=== PATIENT | male | born 1965 | race Caucasian/White ===

== ENCOUNTER 2018-06-22 06:20 | Inpatient (IN) | payer BC ==
[2018-06-22] MEDS ORDERED: GLYCOPYRROLATE 0.4 MG INJ (07:00)
[2018-06-22] MEDS ORDERED: NEOSTIGMINE 3 MG/3 ML SYRINGE (07:00)
[2018-06-22] MEDS ORDERED: SEVOFLURANE 15 MIN (07:00)
[2018-06-22] MEDS ORDERED: ONDANSETRON 4 MG INJ (07:00)
[2018-06-22] MEDS ORDERED: GELATIN SIZE 100 SPONGE (07:33)
[2018-06-22] MEDS ORDERED: THROMBIN 5000 UNIT VIAL (07:33)
[2018-06-22] MEDS: HEPARIN 1000 UNITS/ML 10 ML INJ (07:33)
[2018-06-22] MEDS ORDERED: MIDAZOLAM 1 MG/ML 2 ML INJ (08:05)
[2018-06-22] MEDS ORDERED: HEPARIN 1000 UNITS/ML 10 ML INJ (08:49)
[2018-06-22] MEDS ORDERED: PROTAMINE 250 MG INJ (09:24)
[2018-06-22] MEDS ORDERED: ROCURONIUM 50 MG INJ (09:43)
[2018-06-22] MEDS ORDERED: LIDOCAINE 2% (SDV) 5 ML INJ (09:43)
[2018-06-22] MEDS ORDERED: ETOMIDATE 20 MG INJ (09:43)
[2018-06-22] MEDS ORDERED: CEFAZOLIN 1 GM INJ (09:50)
[2018-06-22] MEDS ORDERED: METOCLOPRAMIDE 10 MG INJ IV (10:00)
[2018-06-22] MEDS ORDERED: FENTAnyl 50 MCG/ML VIAL IV (10:00)
[2018-06-22] MEDS ORDERED: DIPHENHYDRAMINE 50 MG INJ IV (10:00)
[2018-06-22] MEDS ORDERED: MEPERIDINE 25 MG INJ IV (10:00)
[2018-06-22] MEDS ORDERED: LABETALOL HCL 20MG INJ IV (10:00)
[2018-06-22] MEDS ORDERED: hydrALAzine 20 MG INJ IV (10:00)
[2018-06-22] MEDS ORDERED: HYDROmorphONE 1 MG/5 ML IV SYRINGE IV (10:00)
[2018-06-22] MEDS: ONDANSETRON 4 MG INJ IV ×2 (10:25→15:29)
[2018-06-22] MEDS ORDERED: niCARdipine 50 MG in SOD CHLORIDE 0.9% 480 ML IV (10:30)
[2018-06-22] MEDS ORDERED: ACETAMINOPHEN 325 MG TAB PO (11:30)
[2018-06-22] MEDS ORDERED: NACL 0.9% 3 ML SYG IV (11:30)
[2018-06-22 11:42] LABS: ADD MAN DIFF? NO
[2018-06-22 11:45] LABS: BASOPHILS % 0.4 % (0.0-2.0); EOSINOPHILS # 0.1 10^3/ul (0.0-0.5); EOSINOPHILS % 1.6 % (0.0-7.0); HEMATOCRIT 35.5 % (42.0-52.0); HEMOGLOBIN 11.6 g/dl (14.0-18.0); LYMPHOCYTES # 1.8 10^3/ul (0.8-2.9); LYMPHOCYTES % 24.1 % (15.0-51.0); MEAN CORPUSCULAR HEMOGLOBIN 32.5 pg (29.0-33.0); MEAN CORPUSCULAR HGB CONC 32.7 g/dl (32.0-37.0); MEAN CORPUSCULAR VOLUME 99.4 fl (82.0-101.0); MEAN PLATELET VOLUME 11.4 fl (7.4-10.4); MONOCYTE # 0.5 10^3/ul (0.3-0.9); MONOCYTES % 6.7 % (0.0-11.0); NEUTROPHILS % 66.7 % (39.0-77.0); PLATELET COUNT 173 10^3/UL (140-415); RED BLOOD COUNT 3.57 10^6/ul (4.70-6.10); RED CELL DISTRIBUTION WIDTH 13.8 % (11.5-14.5)
[2018-06-22 11:45] LABS: WHITE BLOOD COUNT 7.5 10^3/ul (4.8-10.8)
[2018-06-22] MEDS: HYDROmorphONE 1 MG/5 ML IV SYRINGE IV (11:49)
[2018-06-22 12:11] LABS: ALANINE AMINOTRANSFERASE 20 IU/L (13-69); ALBUMIN 3.7 g/dl (3.3-4.9); ALBUMIN/GLOBULIN RATIO 1.42; ALKALINE PHOSPHATASE 27 IU/L (42-121); ANION GAP 5 (5-13); ASPARTATE AMINO TRANSFERASE 22 IU/L (15-46); BILIRUBIN,INDIRECT 0.3 mg/dl (0-1.1); BILIRUBIN,TOTAL 0.3 mg/dl (0.2-1.3); BLOOD UREA NITROGEN 12 mg/dl (7-20); CALCIUM 8.7 mg/dl (8.4-10.2); CARBON DIOXIDE 28 mmol/L (21-31); CHLORIDE 107 mmol/L (97-110); CREATININE 0.77 mg/dl (0.61-1.24); Estimated GFR > 60 mL/min (>60); GLUCOSE 133 mg/dl (70-220); POTASSIUM 4.1 mmol/L (3.5-5.1); SODIUM 140 mmol/L (135-144); TOTAL PROTEIN 6.3 g/dl (6.1-8.1)
[2018-06-22] MEDS: morphine SULFATE/PF (2 MG/2 ML) SYG IV ×2 (15:30→23:57)
[2018-06-22] MEDS: ATORVASTATIN 40 MG TAB PO (21:00)
[2018-06-23 05:27] LABS: ADD MAN DIFF? NO
[2018-06-23 05:30] LABS: BASOPHILS % 0.2 % (0.0-2.0); EOSINOPHILS # 0.1 10^3/ul (0.0-0.5); EOSINOPHILS % 1.5 % (0.0-7.0); HEMATOCRIT 33.5 % (42.0-52.0); HEMOGLOBIN 11.2 g/dl (14.0-18.0); LYMPHOCYTES # 2.1 10^3/ul (0.8-2.9); LYMPHOCYTES % 24.9 % (15.0-51.0); MEAN CORPUSCULAR HEMOGLOBIN 32.5 pg (29.0-33.0); MEAN CORPUSCULAR HGB CONC 33.4 g/dl (32.0-37.0); MEAN CORPUSCULAR VOLUME 97.1 fl (82.0-101.0); MEAN PLATELET VOLUME 11.5 fl (7.4-10.4); MONOCYTE # 0.7 10^3/ul (0.3-0.9); MONOCYTES % 8.1 % (0.0-11.0); NEUTROPHIL # 5.5 10^3/ul (1.6-7.5); NEUTROPHILS % 64.9 % (39.0-77.0); PLATELET COUNT 180 10^3/UL (140-415); RED BLOOD COUNT 3.45 10^6/ul (4.70-6.10); RED CELL DISTRIBUTION WIDTH 13.9 % (11.5-14.5)
[2018-06-23 05:30] LABS: WHITE BLOOD COUNT 8.5 10^3/ul (4.8-10.8)
[2018-06-23 05:41] LABS: HEMOGLOBIN A1C 5.1 % (0-5.9)
[2018-06-23 05:50] LABS: ALANINE AMINOTRANSFERASE 20 IU/L (13-69); ALBUMIN 3.6 g/dl (3.3-4.9); ALBUMIN/GLOBULIN RATIO 1.33; ALKALINE PHOSPHATASE 24 IU/L (42-121); ANION GAP 8 (5-13); ASPARTATE AMINO TRANSFERASE 11 IU/L (15-46); BILIRUBIN,INDIRECT 0.4 mg/dl (0-1.1); BILIRUBIN,TOTAL 0.4 mg/dl (0.2-1.3); BLOOD UREA NITROGEN 6 mg/dl (7-20); CALCIUM 9.2 mg/dl (8.4-10.2); CARBON DIOXIDE 31 mmol/L (21-31); CHLORIDE 103 mmol/L (97-110); CREATININE 0.74 mg/dl (0.61-1.24); Estimated GFR > 60 mL/min (>60); GLUCOSE 114 mg/dl (70-220); MAGNESIUM 1.8 mg/dl (1.7-2.5); POTASSIUM 3.7 mmol/L (3.5-5.1); SODIUM 142 mmol/L (135-144); TOTAL PROTEIN 6.3 g/dl (6.1-8.1)
[2018-06-23] MEDS: HYDROCODONE/APAP (5/325) TAB PO ×2 (05:54→14:39)
[2018-06-23] MEDS: CLOPIDOGREL 75 MG TAB PO (08:28)
[2018-06-23] MEDS: ENALAPRIL 10 MG TAB PO (08:28)
[2018-06-23] MEDS: ISOSORBIDE MONONITRATE(SR)30 MG TAB PO (08:28)
== END 2018-06-23 15:07 | disposition home or self-care (01) | DRG 254 ==
LOC: REC 06:20 → ICU 15:09
PROC: 04CL0ZZ Extirpation of Matter from Left Femoral Artery, Open Approach (ICD-10-PCS; principal; 2018-06-22 07:59)
PROC: 04UL0JZ Supplement Left Femoral Artery with Synthetic Substitute, Open Approach (ICD-10-PCS; 2018-06-22 07:59)
DX: I70.212 Atherosclerosis of native arteries of extremities with intermittent claudication, left leg (principal); R33.9 Retention of urine, unspecified; I10 Essential (primary) hypertension; E78.5 Hyperlipidemia, unspecified
CPT/HCPCS: 80053; 83036; 83735; 85025; 87081; 87086; 88304